=== PATIENT | male | born 1960 | race Two or more races ===

== ENCOUNTER 2018-04-07 07:09 | Emergency (ER) | payer SELFPAY ==
[~2018-04-07] VITALS: Ht 172.7 cm; Wt 65.0 kg
[2018-04-07 07:33] VITALS: BP 146/94
== END 2018-04-07 10:20 | disposition left against medical advice (07) ==
LOC: ER 07:09
DX: R10.9 Unspecified abdominal pain (principal); Z53.21 Procedure and treatment not carried out due to patient leaving prior to being seen by health care provider